=== PATIENT | male | born 1985 | race Caucasian/White ===

== ENCOUNTER 2020-10-31 08:06 | Emergency (ER) | payer OTHER, MEDICAID, SELFPAY ==
[2020-10-31 08:07] VITALS: BP 124/68; PULSE 95; RESP 16; TEMP 36.6; O2SAT 100; BMI 24.7
--- NOTE | 2020-10-31 08:16 | EDS_ITS ---
HPI History of Present Illness Chief Complaint: Rash Informant: patient Onset/Context/Timing Onset: Month(s) Timing: Continuous Current Severity: Mild Maximum Severity: Mild Narrative Narrative: 35-year-old male no sniffing past medical history. Says for 1 month he has had a rash that itches. Son is abdomen forearms legs. Initially thought was poison tatyana. He went to a local emergency department and they treated him with an injection and prednisone and Benadryl. Said the Benadryl helped the itching but it made him sleepy. The rash never resolved. He denies any other symptoms. No fever or chills. He does not feel sick. Prior similar symptoms: Yes Recent Illness/Hospitalization: No PFSH PFSH Home Medications prednisone 40 mg PO DAILY 7 Days #14 tab 10/31/20 [Rx Last Taken Unknown] Allergy/AdvReac Type Severity Reaction Status Date / Time No Known Allergies Allergy Verified 10/31/20 08:06 Social History Smoking Status: Current every day smoker tobacco type: cigarettes ROS ROS ED ROS Narrative Rash that itches. No other symptoms. Review of Systems ROS Unobtainable: Denies due to encephalopathy Constitutional Constitutional ED: Denies chills or fever(s) Eyes Eyes: Denies change in vision ENT ENT ED: Denies ear pain or sore throat Cardiovascular Cardiovascular: Denies chest pain Respiratory/Chest Respiratory/Chest: Denies cough or dyspnea Gastrointestinal Gastrointestinal: Denies abdominal pain, diarrhea, nausea or vomiting Genitourinary Genitourinary ED: Denies dysuria Musculoskeletal Musculoskeletal: Denies myalgias Integumentary Reports rash; Denies abscess or Abrasions Neurologic Neurologic: Denies headache(s) Psychiatric Psychiatric: Denies depression Endocrine Endocrinology: Denies polyuria Allergic/Immunologic Allergic/Immunologic ED: Denies urticaria EXAM Physical Exam Narrative Exam Narrative: Well-appearing young male. No acute distress. Vital signs stable afebrile. HEENT exam unremarkable. Neck nontender no lymphadenopathy. Lungs clear to auscultation. Heart regular rhythm no murmur. Abdomen soft nontender. Moving all 4 extremities. Neurovascularly intact. Back nontender. Skin rash on both forearms. Dried excoriated. Also on his legs and lower abdomen. Appears to be allergic reaction may or may not be poison tatyana. There is no secondary infection. There are abrasions from him scratching it. Otherwise exam unremarkable. Const Vital Signs: 10/31/20 08:07 Temperature 97.8 F Temperature Source Temporal Pulse Rate 95 Respiratory Rate 16 Blood Pressure 124/68 H Blood Pressure Mean 86 Pulse Ox 100 Oxygen Delivery Method Room Air Positive well nourished and well developed; Negative for unkempt General Appearance ED: well developed and NAD; Negative for unkempt HEENT Reports moist mucous membranes Negative for trauma or tenderness Eyes PERRL and EOMs intact bilaterally Neck no lymphadenopathy, supple and no JVD General: Negative for tenderness Chest Wall inspection of chest normal and palpation of chest normal Resp normal respiratory effort and clear to auscultation bilaterally Cardio regular rate, regular rhythm, S1 normal heart sound, S2 normal heart sound and no murmurs GI normal to inspection, nondistended, normoactive bowel sounds, non-tender, non- distended and no masses Auscultation: normoactive bowel sounds Palpation: soft; Negative for tender Back/Spine no CVA tenderness Extremity normal to inspection General Extremety ED: Negative for edema or tenderness General Extremity: Negative for edema Neuro oriented x3 and CN's II-XII intact bilaterally Sensorium / Orientation: alert Motor Exam: strength 5/5 throughout Psych mental status grossly normal Appearance: Negative for unkempt Mood & Affect: Negative for depressed Skin no wounds Skin Narrative: Rash to bilateral forearms lower abdomen and the legs that is excoriated from scratching. Peers to be allergic reaction. No secondary infection. Rashes: rashes noted MDM MDM MDM Narrative Medical decision making narrative: Patient has a rash most likely allergic reaction will be treated with prednisone. Also instructed to use calamine lotion. Discharge Plan Triage Chief Complaint: Rash ED Provider: Reji Umaña Dx/Rx/DC Orders Clinical Impression: Rash and nonspecific skin eruption, Allergic reaction Instructions: ED Contact Dermatitis Prescriptions: New prednisone 20 mg tablet 40 mg PO DAILY 7 Days Qty: 14 RF: 0 Primary Care Provider: Care Physician,No Primary Referrals: Ayaka Duggan MD [NON-STAFF] - 1 Week if not improving Santana Hamm MD [STAFF PHYSICIAN] - 1 Week if not improving Care Physician,No Primary [Primary Care Provider] - Activity Restrictions/Additional Instructions: Rash is most likely secondary to an allergic reaction to something you came in contact with. Apply calamine lotion to all the areas of the rash twice a day. This should help make it go away. Prednisone daily for 7 days. Follow-up if not improving. Disposition Disposition: Home, Self Care
== END 2020-10-31 08:32 | disposition home or self-care (01) ==
PROVIDERS: Emergency Provider Emergency Medicine
DX: T78.40XA Allergy, unspecified, initial encounter (principal); R21 Rash and other nonspecific skin eruption; X58.XXXA Exposure to other specified factors, initial encounter; F17.210 Nicotine dependence, cigarettes, uncomplicated
CPT/HCPCS: 99282